=== PATIENT | male | born 1970 | race Caucasian/White ===

== ENCOUNTER 2017-03-03 10:27 | Outpatient (CLI) | payer BC, OTHER ==
[~2017-03-03] VITALS: Ht 180.3 cm; Wt 95.0 kg
[~2017-03-03 10:27] MED LIST: Propranolol Hcl PO; Warfarin Sod PO
[2017-03-03] MEDS ORDERED: ATOR20TA66 PO (10:46)
[2017-03-03] MEDS ORDERED: AMLO2.5T PO (10:46)
[2017-03-03] MEDS ORDERED: METH5TAB5 PO (10:46)
[2017-03-03] MEDS ORDERED: ASPI-808 PO (10:46)
[2017-03-03] MEDS ORDERED: LISI10TA2 PO (10:46)
[2017-03-03] MEDS ORDERED: APIX5TAB PO (10:46)
[2017-03-03 10:50] VITALS: BP 136/91
[2017-03-07] MEDS ORDERED: HYDR-3820 PO (10:56)
== END 2017-03-03 13:55 | disposition home or self-care (01) ==
LOC: PREOP 10:27
PROVIDERS: ATTEND Surgery
DX: Z01.810 Encounter for preprocedural cardiovascular examination (principal); Z11.2 Encounter for screening for other bacterial diseases; L98.9 Disorder of the skin and subcutaneous tissue, unspecified
CPT/HCPCS: 87081; 93005

== ENCOUNTER 2017-03-07 06:40 | Day surgery (SDC) | payer BC ==
[~2017-03-07] VITALS: Ht 180.3 cm; Wt 95.0 kg
[~2017-03-07 06:40] MED LIST changes: +AMLO2.5T PO; +APIX5TAB PO; +ASPI-808 PO; +ATOR20TA66 PO; +LISI10TA2 PO; +METH5TAB5 PO
[2017-03-07 07:05] VITALS: BP 148/96
[2017-03-07] MEDS ORDERED: ceFAZolin 1,000 MG (ANCEF) VIAL ONE (07:08)
[2017-03-07] MEDS ORDERED: NS (IVPB) 50 ML ONE (07:08)
[2017-03-07] MEDS ORDERED: BUP/EPI 0.25% 1:200,000 (MARCAINE) 10 ML VIAL IJ ONE ×2 (07:20)
[2017-03-07] MEDS ORDERED: EPINEPHrine INJECTION 1 MG/ML AMP ONE (07:39)
[2017-03-07] MEDS ORDERED: LACTATED RINGERS 1,000 ML IV PRN (07:40)
[2017-03-07] MEDS ORDERED: proPOfol 200 MG/20 ML (DIPRIVAN) VIAL IV ONE (07:52)
[2017-03-07] MEDS ORDERED: LACTATED RINGERS 1,000 ML IV ONE ×2 (07:52→10:17)
[2017-03-07] MEDS ORDERED: SEVOFLURANE (ULTANE) 15 ML INHAL SOLN ONE ×9 (07:52→10:17)
[2017-03-07] MEDS ORDERED: DEXAMETHASONE PF 10 MG/ML (DECADRON) VIAL ONE (07:52)
[2017-03-07] MEDS ORDERED: ONDANSETRON 4 MG/2 ML (SDV) Z0FRAN ONE (07:52)
[2017-03-07] MEDS ORDERED: LIDOCAINE PF 2% 5 ML (XYLOCAINE) VIAL ONE (07:52)
[2017-03-07] MEDS ORDERED: MIDAZOLAM 2 MG/2 ML (VERSED) VIAL ONE (07:53)
[2017-03-07] MEDS ORDERED: fentaNYL INJECTION 100 MCG/2 ML AMP ONE (07:53)
[2017-03-07] MEDS ORDERED: ceFAZolin 1 GM/NS 50 ML IVPB IV ONE ×2 (08:00)
[2017-03-07] MEDS ORDERED: LIDOCAINE JELLY 2% (XYLOCAINE) 5 ML TUBE ONE (08:11)
--- NOTE | 2017-03-07 08:38 | Progress Note-Pre Operative ---
Pre-Operative Progress Note H&P Reviewed The H&P was reviewed, patient examined and no changes noted. Date Seen by Provider: Mar 07, 2017 Time Seen by Provider: 08:38 Date H&P Reviewed: Mar 07, 2017 Time H&P Reviewed: 08:38 Pre-Operative Diagnosis: Skin lesion of scalp TAY GRUBER MD Mar 07, 2017 8:38 am
[2017-03-07] MEDS ORDERED: ONDANSETRON 4 MG/2 ML (SDV) Z0FRAN IVP PRN (09:15)
[2017-03-07] MEDS ORDERED: morphine INJ 10 MG/ML 1ML (SYR OR VIAL) IVP PRN (09:15)
[2017-03-07] MEDS ORDERED: MEPERIDINE (DEMEROL) INJ 50 MG/ML IVP PRN (09:15)
--- NOTE | 2017-03-07 10:55 | Operative Report ---
Operative Report Date of Procedure/Surgery Mar 07, 2017 Surgeon (s) TAY GRUBER MD Masonry Supervisor (s): not applicable Post-Operative Diagnosis squamous cell carcinoma Procedure Performed 1.wide excision of squamous cell carcinoma of scalp( 5 cm in diameter) 2. Split thickness skin graft( 25 cm) Description of Procedure Anesthesia Type: General Estimated blood loss (mL): 50 mL Specimen(s) collected/removed squamous cell carcinoma Description of the Procedure Indication for procedure: This gentleman presented with a raised and irregular lesion over the top of his scalp, having the appearance of a squamous cell carcinoma. He was offered wide excision with frozen section analysis to confirm the diagnosis and ensure negative margins, followed immediately by split thickness skin grafting to cover the defect. Informed consent was obtained after reviewing the operative details and complications of hematoma, postoperative bleeding and failure of the graft. Description of the procedure: He was placed supine on the operating table and general anesthesia induced using a laryngeal mask airway. Ancef was administered intravenously as prophylaxis against wound infection. Sequential compression devices were placed around his legs, to minimize the risk of venous thrombosis. His right upper arm and scalp were prepared and draped in the usual sterile manner.A split thickness skin graft was obtained from his right upper arm using the dermatome device. It was placed in sterile saline to be fashioned for grafting the end of the operation. I, then turned my attention to the lesion over the scalp. Pre-emptive analgesia was established using 0.25 percent Marcaine with epinephrine. A circular incision, 5 cm in diameter was made and the lesion excised down to the aponeurosis. Sutures and sent for frozen section analysis. The pathologist confirmed a squamous cell carcinoma with negative lateral margins. There was tumor at the central aspect of the deep margin. Therefore, I excised additional tissue involving the aponeurosis down to the periosteum of the bone. Hemostasis was achieved using ligaclips and cautery. In addition, topical dilute epinephrine solution was also placed over the incision area to achieve adequate hemostasis. The skin graft was then placed in a standard fashion and secured using tony. A nonadherent dressing was then applied. The donor site was covered with a sterile dressing. He tolerated the procedure well, was extubated in the operating room and taken to the recovery room in a stable condition. Findings of the Procedure see operative report Allergies and Home Medications Allergies Coded Allergies: No Known Drug Allergies (Unverified , 7/31/17) Home Medications Amlodipine Besylate 2.5 Mg Tablet, 2.5 MG PO DAILY, (Reported) Apixaban 5 Mg Tablet, 5 MG PO BID, (Reported) Aspirin 325 Mg Tablet, 650 MG PO PRN, (Reported) Atorvastatin Calcium 20 Mg Tablet, 20 MG PO DAILY, (Reported) Lisinopril 10 Mg Tablet, 10 MG PO DAILY, (Reported) Methimazole 5 Mg Tablet, 5 MG PO DAILY, (Reported) TAY GRUBER MD Mar 07, 2017 10:55 am
[2017-03-07] MEDS ORDERED: HYDR-3820 PO (10:56)
--- NOTE | 2017-03-07 10:57 | Discharge Inst-Simple/Standard ---
Discharge Inst-Standard Discharge Medications New, Converted or Re-Newed RX: RX on Chart Patient Instructions/Follow Up Plan of Care/Instructions/FU: donor site over the right arm may be reinforced with an ABD pad and Kerlix wrap. Scalp wound to be left untouched until Friday. Follow-up with my nurse on Friday for dressing change. Activity as Tolerated: Yes Discharge Diet: No Restrictions TAY GRUBER MD Mar 07, 2017 10:57 am
[2017-03-07 11:40] VITALS: BP 147/81
[2017-03-07 12:20] VITALS: BP 165/97
[2017-03-07 12:40] VITALS: BP 150/90
[2017-03-07 13:00] VITALS: BP 150/90
== END 2017-03-07 13:00 | disposition home or self-care (01) ==
LOC: SDC 06:40
PROVIDERS: ATTEND Surgery
DX: C44.42 Squamous cell carcinoma of skin of scalp and neck (principal); I48.91 Unspecified atrial fibrillation; I35.1 Nonrheumatic aortic (valve) insufficiency; I10 Essential (primary) hypertension; E05.00 Thyrotoxicosis with diffuse goiter without thyrotoxic crisis or storm; Z79.01 Long term (current) use of anticoagulants; Z79.899 Other long term (current) drug therapy; Z87.891 Personal history of nicotine dependence

== ENCOUNTER → 2017-07-01 | Outpatient (CLI) | payer BC ==
[~2017-07-01] MED LIST changes: +HYDR-3820 PO
== END ==
LOC: LAB 10:57
PROVIDERS: ATTEND Internal Medicine
DX: E05.00 Thyrotoxicosis with diffuse goiter without thyrotoxic crisis or storm (principal)
CPT/HCPCS: 36415; 83520; 84443; 84445

== ENCOUNTER → 2018-05-21 | Outpatient (CLI) | payer BC ==
[~2018-05-21] MED LIST changes: -AMLO2.5T PO; +AMLO2.5T3 PO
== END ==
LOC: LAB 09:47
PROVIDERS: ATTEND Internal Medicine
DX: E05.00 Thyrotoxicosis with diffuse goiter without thyrotoxic crisis or storm (principal)
CPT/HCPCS: 36415; 84443

== ENCOUNTER → 2018-12-15 | Outpatient (CLI) | payer BC ==
[~2018-12-15] MED LIST changes: -AMLO2.5T3 PO; +AMLO2.5T4 PO
[2018-12-15 10:45] LABS: FREE T4 (FREE THYROXINE) 1.24 NG/DL (0.70-1.48)
== END ==
LOC: LAB 09:43
PROVIDERS: ATTEND Internal Medicine
DX: E05.00 Thyrotoxicosis with diffuse goiter without thyrotoxic crisis or storm (principal)
CPT/HCPCS: 36415; 84439; 84443

== ENCOUNTER → 2020-05-23 | Outpatient (CLI) | payer BC, OTHER ==
[~2020-05-23] MED LIST changes: +ACHYD1T PO; -HYDR-3820 PO
--- NOTE | 2020-05-23 11:34 | Diagnostic Imaging Report ---
PROCEDURE: US Thyroid. TECHNIQUE: Multiple real-time grayscale images were obtained of the thyroid in various projections. INDICATION: Goiter The previous thyroid ultrasound exam of 06/16/2014 noted that the thyroid gland was enlarged and that each lobe had a heterogeneous texture. This appearance was felt related to a multinodular goiter. On this study the thyroid gland remains enlarged. The right lobe measures 6.2 x 2.6 x 2.6 cm while the left lobe is estimated to be 6.1 x 2.8 x 2.6 cm (normal gland size 45 x 2 x 2 cm or less). On the prior exam the right lobe measures 6.7 x 2.6 x 2.4 cm, the left lobe measured 7.5 x 2 x 2.4 cm. Each lobe still has somewhat of a heterogeneous appearance but the texture of each lobe is more homogeneous than on the previous exam. There is still no discrete mass identified. IMPRESSION: 1. The thyroid gland remains enlarged but each lobe has more of a homogeneous appearance than on the prior study. 2. There is still no discrete solid or cystic mass identified within either lobe. Dictated by: Dictated on workstation # [id number]
== END ==
LOC: RAD 10:32
PROVIDERS: ATTEND Internal Medicine Endocrinology, Diabetes & Metabolism
DX: E05.90 Thyrotoxicosis, unspecified without thyrotoxic crisis or storm (principal)
CPT/HCPCS: 76536

== ENCOUNTER → 2020-09-08 | Outpatient (CLI) | payer OTHER | LOC: LAB 09:04 | PROVIDERS: ATTEND Internal Medicine Endocrinology, Diabetes & Metabolism | DX: E05.90 Thyrotoxicosis, unspecified without thyrotoxic crisis or storm (principal) | CPT/HCPCS: 36415; 84439; 84480 ==

== ENCOUNTER → 2021-05-25 | Outpatient (CLI) | payer OTHER ==
[~2021-05-25] MED LIST changes: -LISI10TA2 PO; +LISI10TA25 PO
[2021-05-25 16:47] LABS: FREE T4 (FREE THYROXINE) 0.96 NG/DL (0.70-1.48)
== END ==
LOC: LAB 15:44
PROVIDERS: ATTEND Internal Medicine Endocrinology, Diabetes & Metabolism
DX: E05.90 Thyrotoxicosis, unspecified without thyrotoxic crisis or storm (principal)
CPT/HCPCS: 36415; 84439; 84443